=== PATIENT | female | born 1970 | race Caucasian/White ===

== ENCOUNTER → 2020-08-23 08:14 | Outpatient (BNVA) | payer MEDICAID, SELFPAY | PROVIDERS: PCP Nurse Practitioner Pediatrics; Visit Provider Physician Assistant | DX: Z76.89 Persons encountering health services in other specified circumstances (principal) ==

== ENCOUNTER → 2020-09-13 09:58 | Outpatient (BNVA) | payer MEDICAID, SELFPAY | PROVIDERS: PCP Nurse Practitioner Pediatrics; Visit Provider Surgery | DX: E66.9 Obesity, unspecified (principal); Z68.32 Body mass index [BMI] 32.0-32.9, adult; K21.9 Gastro-esophageal reflux disease without esophagitis; Z98.84 Bariatric surgery status | CPT/HCPCS: 99212 ==

== ENCOUNTER 2020-10-05 06:32 | Day surgery (SDC) | payer MEDICAID, SELFPAY ==
[2020-09-29 14:05] VITALS: BMI 32.3
--- NOTE | 2020-10-04 10:52 | HO.ANESPROP2 ---
Documented by User: Yisel Valdez 10/04/20 10:53 HPI - Anesthesia Eval Consult details Narrative: 50yo F for Upper Endoscopy s/p gastric sleeve 09/2018 [facility] Past Medical History Medical History Asthma GERD (gastroesophageal reflux disease) History of tinnitus Obesity (BMI 30-39.9) Osteoarthritis Seizures Family History Family History Father CVD (cardiovascular disease) Obesity Mother Lung cancer Cervical cancer Brother No problems noted. Son No problems noted. Daughter No problems noted. Daughter No problems noted. Surgical History Surgical History History of bilateral knee arthroplasty History of endometrial ablation History of sleeve gastrectomy Hx of carpal tunnel repair Hx of section S/P DAWSON (total abdominal hysterectomy) Social History Social History Are you a primary child care associate teacher to a significant other at home: No Do you presently have visiting nurse or other home services: No Alcohol intake: never Smoking Status: Former smoker Smoking Quit Date: 2017 Use of substances other than those prescribed or required for medical reasons: No Have you been hit, kicked, punched, or otherwise hurt by someone within the past year? If so, by whom?: No Advance Directives: No Advance Directives Information Provided: No Advance Directives on File: No Recently lost weight without trying: No Meds Allergies Allergy/AdvReac Type Severity Reaction Status Date / Time clarithromycin [From BIAXIN] Allergy Severe RASH Verified 10/05/20 06:51 shrimp [SHRIMP] Allergy Severe THROAT Verified 10/05/20 06:51 CLOSES carbamazepine [From TEGRETOL] Allergy Intermediate RASH Verified 10/05/20 06:51 Home Medications Medication Instructions Recorded Confirmed Type Celebrate calcium citrate PO 08/23/20 09/13/20 History Opurity Bariatric MVI 1 tab PO DAILY 08/23/20 09/29/20 History pantoprazole 40 mg tablet,delayed 40 mg PO BID tab 09/13/20 09/29/20 History release Exam Exam Date and Time: October 04, 2020 1052 Height,Weight and Vital Signs: Height 5 ft 6 in Weight 90.804 kg Assessment and Plan Assessment Anesthesia Assessment: Chart Reviewed Documented by User: Sacha Lloyd 10/05/20 07:21 PMFSH Past Medical History Medical History Asthma GERD (gastroesophageal reflux disease) History of tinnitus Obesity (BMI 30-39.9) Osteoarthritis Seizures Family History Family History Father CVD (cardiovascular disease) Obesity Mother Lung cancer Cervical cancer Brother No problems noted. Son No problems noted. Daughter No problems noted. Daughter No problems noted. Family history of problems with anesthesia: No Surgical History Surgical History History of bilateral knee arthroplasty History of endometrial ablation History of sleeve gastrectomy Hx of carpal tunnel repair Hx of section S/P DAWSON (total abdominal hysterectomy) History of Problems with Anesthesia: Yes (Nausea) Social History Social History Are you a primary child care associate teacher to a significant other at home: No Do you presently have visiting nurse or other home services: No Alcohol intake: never Smoking Status: Former smoker Smoking Quit Date: 2017 Use of substances other than those prescribed or required for medical reasons: No Have you been hit, kicked, punched, or otherwise hurt by someone within the past year? If so, by whom?: No Advance Directives: No Advance Directives Information Provided: No Advance Directives on File: No Recently lost weight without trying: No Meds Allergies Allergy/AdvReac Type Severity Reaction Status Date / Time clarithromycin [From BIAXIN] Allergy Severe RASH Verified 10/05/20 06:51 shrimp [SHRIMP] Allergy Severe THROAT Verified 10/05/20 06:51 CLOSES carbamazepine [From TEGRETOL] Allergy Intermediate RASH Verified 10/05/20 06:51 Home Medications Medication Instructions Recorded Confirmed Type Celebrate calcium citrate PO 08/23/20 09/13/20 History Opurity Bariatric MVI 1 tab PO DAILY 12/08/20 01/14/21 History pantoprazole 40 mg tablet,delayed 40 mg PO BID tab 09/13/20 09/29/20 History release Exam Airway Mallampati Class: I TM Dist: >3cm Neck ROM: Full Loose/Missing/Broken Teeth: No Assessment and Plan Assessment Anesthesia Assessment: Anesthesia Plan Discussed and Chart Reviewed Final Anesthetic Review NPO: Yes ASA Class: II Final Preanesthetic Review: No Changes in Pt Med Stat, Meds/Allgs Chart Reviewed, Consent Obtained/Reviewed and Anes Risks/Benef Reviewed Patient Risk: Low Procedure Risk: Intermediate Anesthetic Plan Anesthetic Plan: MAC: and Agree w/ Assess. and Plan Disposition: Standard PACU
--- NOTE | 2020-10-04 14:13 | MHC.SHP ---
Pre-Procedural Eval Section B Chief Complaint: reflux disease Allergies: Allergies Allergy/AdvReac Type Severity Reaction Status Date / Time clarithromycin [From BIAXIN] Allergy Severe RASH Unverified 09/29/20 14:04 shrimp [SHRIMP] Allergy Severe THROAT Unverified 09/29/20 14:04 CLOSES carbamazepine [From TEGRETOL] Allergy Intermediate RASH Unverified 09/29/20 14:04 Plan I have reviewed the history and physical and performed a pertinent physical examination on my patient. No changes have occurred unless specified.
[2020-10-05 06:41] VITALS: BP 111/73; PULSE 71; RESP 16; TEMP 36.3; O2SAT 99
[2020-10-05] MEDS: Lactated Ringers 1,000 ML 100 ML IVCONT (06:52)
[2020-10-05 08:05] VITALS: BP 101/62; PULSE 85; RESP 15; TEMP 36.2; O2SAT 90
[2020-10-05 08:21] VITALS: BP 108/66; PULSE 76; RESP 14; TEMP 36.2; O2SAT 98
--- NOTE | 2020-10-05 08:33 | P.BOP_ITS ---
Brief Operative Note Date of Service: 10/05/20 Pre-op diagnosis: Severe gastroesophageal reflux disease status post sleeve gastrectomy 1 year ago Post-op diagnosis: other (Small sliding hiatal hernia, antral gastritis, J- shaped stomach) Procedure: 1. Esophagogastroduodenoscopy, 2. Antral biopsy x2, 3. Through the scope balloon dilation of proximal stenosis to 18-20 mm Implants: None Surgeon: Malia Moralez MD Anesthesia: MAC Estimated blood loss (mL): 1 Pathology: other (Antral biopsy x2) Condition: stable Disposition: PACU
--- NOTE | 2020-10-05 09:04 | OP_ITS ---
SURGEON: Malia Moralez MD PREOPERATIVE DIAGNOSIS: POSTOPERATIVE DIAGNOSIS: PROCEDURE PERFORMED: 1. Esophagogastroduodenoscopy. 2. Antral biopsy x2. 3. Balloon dilation of the mid gastric body with an 18 to 20 mm through the scope balloon. ESTIMATED BLOOD LOSS: COMPLICATIONS: None. ANESTHESIA: Total intravenous anesthesia with propofol given by the anesthesiologist. ASSISTANTS: SPECIMENS: PREPROCEDURE DIAGNOSIS: Severe gastroesophageal reflux, status post gastric sleeve about a year and a half ago. POSTPROCEDURE DIAGNOSES: J-shaped stomach, small hiatal hernia which is sliding in nature and antral gastritis. CONDITION: Postprocedure, good. DESCRIPTION OF PROCEDURE: The patient was brought into the operating room on stretcher and placed in the left lateral decubitus position. A safety time-out was performed. A total intravenous anesthesia was given by the anesthesiologist. A bite block had been placed between the teeth prior to this. Once the patient was adequately sedated, the gastroscope was placed into posterior oropharynx, passed down the esophagus, evaluating esophageal mucosa which was normal. The GE junction was located at 34 cm from the incisors. There was a small sliding hiatal hernia. The gastroscope was passed into the proximal gastric pouch and then there was a ervin turn to the stomach creating a J-shaped. There appeared to be mild stenosis at this area, but the gastroscope was easily passed through this portion into the lower stomach. The stomach continued to turn in a J-like fashion and it was another ervin turn to get out to the antrum and then out to the duodenum. The gastroscope was easily passed through the pre-pyloric region into the duodenum all of which was normal. All these portions of the upper endoscopy were documented using photo documentation. There was slight erythema and granularity of the antrum, which was biopsied x2. I decided to perform a [id number] balloon dilation of the proximal ervin turn that may have been mildly stenosed. I have placed an 18 to 20 mm [id number] balloon across this area at 40 cm from the incisors where the 1st turn noting in the J-shaped stomach was. I placed this across the area of mild stenosis and we blew up the balloon to 18 mm, left it there for 1 minute. We then blew up the balloon to 19 mm and left there for 1 minute and then blew it up to 20 mm and left it there for additional 1 minute before letting the balloon down, and removing it from the scope. We evaluated this area again. It did not appear to be stenosed, but there was a turn in this area consistent with a J-shaped stomach proximally and just before the antrum. We desufflated the stomach and removed the scope without difficulty. The patient was sent to the recovery room in stable condition. PICKLE PUMPER: None. SPECIMEN: Antral biopsy x2. MD LOTTIE Perez/MODL / [id number]
== END 2020-10-05 08:55 | disposition home or self-care (01) ==
PROVIDERS: PCP Nurse Practitioner Pediatrics; Visit Provider Surgery
PROC: 0DJ08ZZ Inspection of Upper Intestinal Tract, Via Natural or Artificial Opening Endoscopic (ICD-10-PCS; CPT 43235; principal; 2020-10-05 07:30)
DX: K21.9 Gastro-esophageal reflux disease without esophagitis (principal); K29.50 Unspecified chronic gastritis without bleeding; K31.89 Other diseases of stomach and duodenum; K44.9 Diaphragmatic hernia without obstruction or gangrene; Z98.84 Bariatric surgery status; J45.909 Unspecified asthma, uncomplicated; M19.90 Unspecified osteoarthritis, unspecified site; R56.9 Unspecified convulsions; Z79.899 Other long term (current) drug therapy; Z88.1 Allergy status to other antibiotic agents; Z88.8 Allergy status to other drugs, medicaments and biological substances; Z87.891 Personal history of nicotine dependence
CPT/HCPCS: 43249; 43239; 88305; 88342; C1726; J3010

== ENCOUNTER → 2020-10-07 11:07 | Outpatient (BNVA) | payer MEDICAID, SELFPAY | PROVIDERS: PCP Nurse Practitioner Pediatrics; Visit Provider Surgery | DX: E66.9 Obesity, unspecified (principal); K21.9 Gastro-esophageal reflux disease without esophagitis; Z90.3 Acquired absence of stomach [part of]; Z68.32 Body mass index [BMI] 32.0-32.9, adult | CPT/HCPCS: 99212 ==

== ENCOUNTER → 2020-10-13 09:12 | Outpatient (BNVA) | payer MEDICAID, SELFPAY | PROVIDERS: PCP Nurse Practitioner Pediatrics; Visit Provider Surgery | DX: Z01.818 Encounter for other preprocedural examination (principal); E66.9 Obesity, unspecified; K21.9 Gastro-esophageal reflux disease without esophagitis; R06.02 Shortness of breath; Z90.3 Acquired absence of stomach [part of] | CPT/HCPCS: 99212 ==

== ENCOUNTER 2020-10-19 06:08 | Inpatient (IN) | payer MEDICAID, SELFPAY ==
--- NOTE | 2020-10-13 | ECG_ITS ---
Test Reason : SOB, PREOP Blood Pressure : / mmHG Vent. Rate : 056 BPM Atrial Rate : 056 BPM P-R Int : 162 ms QRS Dur : 094 ms QT Int : 418 ms P-R-T Axes : 039 023 020 degrees QTc Int : 403 ms Sinus bradycardia Otherwise normal ECG When compared with ECG of 02-OCT-2018 14:37, No significant change was found Referred By: Malia Moralez Electronically Signed By:Brian Price
[2020-10-13 10:39] LABS: MANUAL DIFF FLAG NO
[2020-10-13 10:44] LABS: Basophils Absolute Auto 0.1 X10*3/uL (0.0-0.2); Basophils Percent Auto 1.5 % (0-2); Eosinophils Absolute Auto 0.2 X10*3/uL (0.0-0.4); Eosinophils Percent Auto 3.9 % (0-4); Hematocrit 36.5 % (37-47); Hemoglobin 11.8 g/dl (12.0-16.0); Lymphocytes Absolute Auto 1.4 X10*3/uL (1.2-4.9); Lymphocytes Percent Auto 33.7 % (20-40); Mean Corpuscular HGB Conc 32.3 g/dl (31.0-35.0); Mean Corpuscular Hemoglobin 30.4 pg (27.0-33.0); Mean Corpuscular Volume 94.1 fL (80-98); Mean Platelet Volume 10.3 fL (9.4-12.3); Monocytes Absolute Auto 0.3 X10*3/uL (0.1-1.2); Monocytes Percent Auto 6.8 % (2-11); Neutrophils Absolute Auto 2.2 X10*3/uL (2.0-8.3); Neutrophils Percent Auto 54.1 % (45-73); Platelet Count 280 X10*3/uL (160-400); Red Blood Count 3.88 X10*6/uL (4.20-5.50); Red Cell Distribution Width 13.4 % (11.0-16.0); White Blood Count 4.1 X10*3/uL (4.8-10.8)
[2020-10-13 11:02] LABS: Glucose Urine UA NEG (NEG); Leukocyte Esterase Urine NEG (NEG); Nitrite Urine NEG (NEG); Urine Blood NEG (NEG); Urine Ketones NEG (NEG); Urine Protein NEG (NEG-TRACE)
[2020-10-13 11:04] LABS: Appearance Urine CLEAR; Color Urine YELLOW
[2020-10-13 11:09] LABS: Albumin Level 4.4 g/dL (3.5-5.0); Anion Gap 13 (12-20); Blood Urea Nitrogen 12 mg/dL (9-16); Calcium 9.3 mg/dL (8.4-10.2); Carbon Dioxide 28 mmol/L (22-29); Chloride 102 mmol/L (96-108); Estimated Glomerular Filt Rate > 60; Glucose Random 81 mg/dL (60-115); Potassium 4.5 mmol/l (3.3-5.1); Sodium 138 mmol/L (135-145)
[2020-10-14 11:47] VITALS: BMI 31.8
--- NOTE | 2020-10-18 12:03 | MHC.SHP ---
Pre-Procedural Eval Section B Chief Complaint: Obesity Allergies: Allergies Allergy/AdvReac Type Severity Reaction Status Date / Time clarithromycin [From BIAXIN] Allergy Severe RASH Verified 10/14/20 11:09 shrimp [SHRIMP] Allergy Severe THROAT Verified 10/14/20 11:09 CLOSES carbamazepine [From TEGRETOL] Allergy Intermediate RASH Verified 10/14/20 11:09 Plan I have reviewed the history and physical and performed a pertinent physical examination on my patient. No changes have occurred unless specified.
[2020-10-19] VITALS (15 sets, daily range): BP systolic 128–160; BP diastolic 64–85; PULSE 73–99; RESP 14–20; TEMP 36.4–37.3; O2SAT 95–100
[2020-10-19 06:56] LABS: COVID-19 Test Negative (Negative)
--- NOTE | 2020-10-19 07:10 | HO.ANESPROP2 ---
[facility] Past Medical History Medical History Asthma GERD (gastroesophageal reflux disease) History of tinnitus Obesity (BMI 30-39.9) Osteoarthritis Seizures Family History Family History Father CVD (cardiovascular disease) Obesity Mother Lung cancer Cervical cancer Brother No problems noted. Son No problems noted. Daughter No problems noted. Daughter No problems noted. Surgical History Surgical History History of bilateral knee arthroplasty History of endometrial ablation History of esophagogastroduodenoscopy (EGD) History of sleeve gastrectomy Hx of carpal tunnel repair Hx of section S/P DAWSON (total abdominal hysterectomy) Social History Social History Are you a primary pediatric critical care nurse to a significant other at home: No Do you presently have visiting nurse or other home services: No Alcohol intake: never Smoking Status: Former smoker Smoking Quit Date: 2017 Use of substances other than those prescribed or required for medical reasons: No Have you been hit, kicked, punched, or otherwise hurt by someone within the past year? If so, by whom?: No Advance Directives: No Advance Directives Information Provided: No Advance Directives on File: No Recently lost weight without trying: No Meds Allergies Allergy/AdvReac Type Severity Reaction Status Date / Time clarithromycin [From BIAXIN] Allergy Severe RASH Verified 10/14/20 11:09 shrimp [SHRIMP] Allergy Severe THROAT Verified 10/14/20 11:09 CLOSES carbamazepine [From TEGRETOL] Allergy Intermediate RASH Verified 10/14/20 11:09 Home Medications Medication Instructions Recorded Confirmed Type Celebrate calcium citrate PO 08/23/20 10/13/20 History Opurity Bariatric MVI 1 tab PO DAILY 08/23/20 10/14/20 History pantoprazole 40 mg tablet,delayed 40 mg PO BID tab 09/13/20 10/14/20 History release omeprazole 40 mg PO DAILY 10/19/20 10/19/20 History Exam Exam Date and Time: October 19, 2020 0710 Height,Weight and Vital Signs: Height 5 ft 6 in Weight 89.494 kg Last Vital Signs Temp 97.6 F 10/19/20 06:21 Pulse 73 10/19/20 06:21 Resp 20 10/19/20 06:21 BP 130/72 10/19/20 06:21 Pulse Ox 98 10/19/20 06:21 Pertinent Lab Results Pertinent Lab Results: Laboratory Tests 10/13/20 10/13/20 10/13/20 10:25 10:25 10:30 WBC 4.1 L RBC 3.88 L Hgb 11.8 L Hct 36.5 L MCV 94.1 MCH 30.4 MCHC 32.3 RDW 13.4 Plt Count 280 MPV 10.3 Immature Gran % (Auto) 0.0 Neut % (Auto) 54.1 Lymph % (Auto) 33.7 [place] % (Auto) 6.8 Eos % (Auto) 3.9 Baso % (Auto) 1.5 Lymph # (Auto) 1.4 [place] # (Auto) 0.3 Eos # (Auto) 0.2 Baso # (Auto) 0.1 Abs Immat Gran (auto) 0.00 Absolute Neuts (auto) 2.2 Absolute Nucleated RBC 0.000 Nucleated RBC % (auto) 0.0 Sodium 138 Potassium 4.5 Chloride 102 Carbon Dioxide 28 Anion Gap 13 BUN 12 Creatinine 0.76 Estim Creat Clear Calc TNP Estimated GFR > 60 Random Glucose 81 Calcium 9.3 Albumin 4.4 Urine Color Urine Appearance Urine pH Ur Specific Spencer Urine Protein Urine Glucose (UA) Urine Ketones Urine Blood Urine Nitrite Ur Leukocyte Esterase COVID-19 ([facility]) COVID-19 Clin Com Blood Type O Positive Antibody Screen NEGATIVE 10/13/20 10/19/20 Unknown 06:10 WBC RBC Hgb Hct MCV MCH MCHC RDW Plt Count MPV Immature Gran % (Auto) Neut % (Auto) Lymph % (Auto) [place] % (Auto) Eos % (Auto) Baso % (Auto) Lymph # (Auto) [place] # (Auto) Eos # (Auto) Baso # (Auto) Abs Immat Gran (auto) Absolute Neuts (auto) Absolute Nucleated RBC Nucleated RBC % (auto) Sodium Potassium Chloride Carbon Dioxide Anion Gap BUN Creatinine Estim Creat Clear Calc Estimated GFR Random Glucose Calcium Albumin Urine Color YELLOW Urine Appearance CLEAR Urine pH 7.0 Ur Specific Spencer 1.010 Urine Protein NEG Urine Glucose (UA) NEG Urine Ketones NEG Urine Blood NEG Urine Nitrite NEG Ur Leukocyte Esterase NEG COVID-19 ([facility]) Negative COVID-19 Clin Com See Note Blood Type Antibody Screen Airway Mallampati Class: II TM Dist: >3cm Neck ROM: Full Loose/Missing/Broken Teeth: No Heart: [id number] Lungs: cta b/l Assessment and Plan Assessment Anesthesia Assessment: Anesthesia Plan Discussed and Chart Reviewed Final Anesthetic Review NPO: Yes ASA Class: II Final Preanesthetic Review: No Changes in Pt Med Stat, Meds/Allgs Chart Reviewed, Consent Obtained/Reviewed and Anes Risks/Benef Reviewed Patient Risk: Low Procedure Risk: Low Assessment/Block/Sedation in SS: Assess/Block/Sedation-SS Anesthetic Plan Anesthetic Plan: GA and Agree w/ Assess. and Plan Disposition: Standard PACU
[2020-10-19] MEDS: Lactated Ringers 1,000 ML 50 ML IVCONT (07:15)
--- NOTE | 2020-10-19 11:04 | P.OP_ITS ---
Operative Note Operative Note Date of Service: 10/19/20 Narrative: Patient was brought into the operating room and placed on the operating room table in the supine position. General anesthesia was induced. Normal DVT prophylaxis was instituted and the patient received 2 grams of cefotetan preoperatively. The abdomen was then prepped and draped in the normal sterile fashion. A safety time-out was performed. A mixture of 1% lidocaine with epinephrine and ?% Marcaine plain was used to an esthetize the planned incision site in the left upper quadrant. A #11 scalpel was used to make a 5 mm left upper quadrant transverse incision through which a veress needle was placed. Three pops were heard going through the fascia. A saline drop test was used to confirm that the veress needle was intraabdominal. An optiview technique was then used to place a 5mm port in the left upper quadrant. A 5 mm 30 degree laproscope was then placed through this port and the abdominal cavity was surveyed and was normal. The patient was placed in reverse Trendelenburg positioning. A bishop liver retractor was then placed in the subxyphoid position and it was used to hold up the left lobe of the liver to the abdominal wall. This was secured to the bed using the liver retractor brito. A RONNIE block was then performed for pain control on the right side of the abdomen. A 5 mm port was placed in the right upper quadrant near the falciform ligament. A 12 mm port was then placed in the mid epigastrium. One additional 5 mm port was placed in the left upper quadrant just to the left of the placement of the first port. I then performed a RONNIE block on the left side of the abdomen. We lifted up the transverse colon mesentery and visualized the ligament of Trietz. I then counted 40 cm from the ligament of Trietz and created a small window in the small bowel mesentery. I then stapled across the antimesenteric surface of the small bowel at the at the 40 cm polly. The proximal limb is the biliopancreatic limb and the distal transected bowel will be the billy limb. I divided the mesentery at the 40 cm polly parallel to the blood vessels in the mesentery for a short distance to be able to bring up the billy limb to the gastric pouch later. I counted 150 cm from the distally transected bowel and sutured the the billy limb at 150 cm to the biliopancreatic limb using the endostich and a 2-0 ethibond. I then created 2 enterotomies in the lined up limbs of bowel using the hook cautery. I lengthened the enterotomies using the ligasure device and created a common anastomosis using a 60 mm baker load endostapler. I stapled the common enterotomy transversely to prevent stricture. I then closed the mesenteric defect at the anastomosis with a 2-0 ethibond running endostich suture. I then created the gastric pouch. I removed the epigastric fat pad and opened up the angle of His. There was a small anterior hiatal hernia. I reapproximated the right and left crura using a total of 220 Ethibond sutures and a laparoscopic needle fast food delivery driver and knot pusher. There is no residual hiatal hernia. I gained entry into the lesser sac on the lesser curvature of the stomach by dividing a portion of the pars lucida. I fired a 60 mm purple endostapler transversely across the stomach about 4 cm distal to the GE junction. Completing the creation of the gastric pouch from the previous sleeve gastrectomy. The staple line was hemostatic. I brought the billy limb up to the gastric pouch and sutured the billy limb serosa to the gastric pouch serosa posterior to the transverse staple line using a 2-0 ethibond running stitch using the endostitch. I created a gastrotomy and enterotomy in the adjacent billy limb. I lengthened the gastrotomy and enterotomy using the ligasure. I sutured the posterior wall of the stomach and the billy limb together using a 0 vicryl running stitch. I sutured the anterior wall of the stomach and billy limb together using another running 0-vicryl stitch. The the anterior serosa of stomach and billy limb were sutured using a 2-0 ethibond running stitch for a double layer anterior and posterior closure of the gastrojejunostomy. I then clamped across the billy limb distal to the anastomosis using a fired 60 mm stapler. I flatted the patient and instilled normal saline around the new anastomosis. I per formed an on-talbe endoscopy. The gastric pouch mucosa was pink without any active bleeding the anastomosis was visably patent. I insufflated the gastric pouch and anastomosis. There was no evidence of leak on laparoscopy. I desufflated the gastric pouch and removed the endoscopy. I removed the endostapler from the abdomen and suctioned the fluid from the left upper quadrant. We placed a 10 mm Ollie-De La Rosa drain adjacent to the newly created anastomosis at the gastric jejunum. We brought the tubing out of the right upper quadrant 5 mm port site and secured the tubing to the abdominal wall using a 2-0 nylon suture. We placed this drain to bulb suction. We removed the 12 mm port and closed the defect with a 0 maxon suture and laparoscopic suture passer. We instilled local anesthetic into the fascial closure site and tied the suture down at a pressure of 8-10 mm of Hg. I removed the bishop liver retractor and the left upper quadrant ports. There was no evidence active bleeding. I removed the last port and laparoscopy. We reapproximated all skin incisions using 4-0 monocryl subcuticular stitch. We cleaned and dried the skin and applied dermabond to all skin incisions. All counts were correct at the end of the case . There were no complications. The patient was awake and in stable condition prior to extubation and transfer to the recovery room.
--- NOTE | 2020-10-19 11:08 | P.BOP_ITS ---
Brief Operative Note Date of Service: 10/19/20 Pre-op diagnosis: Severe gastroesophageal reflux disease and hiatal hernia Post-op diagnosis: same Procedure: Laparoscopic conversion of sleeve gastrectomy to Neisha-en-Y gastric bypass, hiatal hernia repair, and intraoperative endoscopy. Implants: covidien brendan Surgeon: Malia Moralez MD Anesthesia: GETA Child Psychologist: Moriah Barroso Estimated blood loss (mL): 30 Pathology: none sent Condition: stable Disposition: PACU
[2020-10-19] MEDS: HYDROmorphone HCl 0.5 MG/0.5 ML SYRINGE IVPUSH (11:10)
[2020-10-19] MEDS: Lactated Ringers 1,000 ML 150 ML IVCONT ×2 (13:32→20:54)
[2020-10-19] MEDS: ondansetron HCL 4 MG/2 ML VIAL IVPUSH ×2 (13:32→20:54)
[2020-10-19] MEDS: Famotidine/PF 20 MG/2 ML VIAL IVPUSH ×2 (13:32→20:54)
[2020-10-19] MEDS: cefoTEtan disodium 2 GM in 0.9 % Sodium Chloride 50 ML IV (18:56)
[2020-10-19] MEDS: HYDROmorphone HCl 0.5 MG/0.5 ML SYRINGE 0.25 MG IVPUSH (20:55)
[2020-10-19] MEDS: 0.9 % Sodium Chloride Flush 3 ML SYRINGE IVFLUSH (20:56)
[2020-10-20 01:40] VITALS: RESP 18
[2020-10-20] MEDS: HYDROmorphone HCl 0.5 MG/0.5 ML SYRINGE 0.25 MG IVPUSH ×2 (01:40→07:36)
[2020-10-20] MEDS: Lactated Ringers 1,000 ML 150 ML IVCONT (02:55)
[2020-10-20 03:51] VITALS: BP 140/73; PULSE 84; RESP 16; TEMP 36.9; O2SAT 99
[2020-10-20 04:29] LABS: Basophils Percent Auto 0.3 % (0-2); Eosinophils Percent Auto 0.1 % (0-4); Hematocrit 32.4 % (37-47); Hemoglobin 10.6 g/dl (12.0-16.0); Imm Gran Abs Auto 0.02 X10*3/uL (0.00-0.03); Imm Gran Pct Auto 0.3 % (0.0-0.4); Lymphocytes Percent Auto 13.6 % (20-40); MANUAL DIFF FLAG NO; Mean Corpuscular HGB Conc 32.7 g/dl (31.0-35.0); Mean Corpuscular Hemoglobin 30.8 pg (27.0-33.0); Mean Corpuscular Volume 94.2 fL (80-98); Mean Platelet Volume 10.2 fL (9.4-12.3); Monocytes Absolute Auto 0.5 X10*3/uL (0.1-1.2); Monocytes Percent Auto 7.3 % (2-11); Neutrophils Absolute Auto 5.6 X10*3/uL (2.0-8.3); Neutrophils Percent Auto 78.4 % (45-73); Platelet Count 217 X10*3/uL (160-400); Red Blood Count 3.44 X10*6/uL (4.20-5.50); Red Cell Distribution Width 13.9 % (11.0-16.0); White Blood Count 7.1 X10*3/uL (4.8-10.8)
[2020-10-20 04:53] LABS: Anion Gap 13 (12-20); Blood Urea Nitrogen 6 mg/dL (9-16); Calcium 8.2 mg/dL (8.4-10.2); Carbon Dioxide 25 mmol/L (22-29); Chloride 103 mmol/L (96-108); Creatinine Clr Calc Pharmacy 123.7; Estimated Glomerular Filt Rate > 60; Glucose Random 89 mg/dL (60-115); Sodium 137 mmol/L (135-145)
[2020-10-20] MEDS: ondansetron HCL 4 MG/2 ML VIAL IVPUSH (05:25)
--- NOTE | 2020-10-20 07:25 | PM.PNGS ---
Subjective Subjective Date of Service: 10/20/20 Patient reports: feels better, voiding w/o difficulty, flatus and no bowel movement Interval history: POD #1 s/p conversion of LSG to RNYGBP and HH repair. Pt reports some nausea that resolves with antiemetics, no emesis. Minimal abd apin, ambulating and voiding without difficulty. Using ICS hourly wit minimal non productive cough. Feels ready to start bariatric diet. No SOB or CP. Physical Exam Vital Signs: Vital Signs: Last Vital Signs Temp 98.4 F 10/20/20 03:51 Pulse 84 10/20/20 03:51 Resp 16 10/20/20 03:51 BP 140/73 H 10/20/20 03:51 Pulse Ox 99 10/20/20 03:51 Body Mass Index 31.8 Const: General: cooperative, healthy appearing, comfortable, no acute distress, well developed and awake GI: Inspection: No distended, Yes incision (all incisions clean and dry , surg glue intact), Yes obesity and Yes other (JAMIE drain with 15 cc serosang fluid, dressing with old bld) Palpation (GI): Soft to palpation, nontender, no guarding, not rigid and no masses Extrem: General: Yes normal to inspection, No no pedal edema and No no calf tenderness Progress Note: A&P Assessment and plan (1) S/P gastric bypass: Status: Acute (2) History of sleeve gastrectomy: Problem details: DOS 10/08/18, Dr. Moralez Status: Acute (3) Hiatal hernia: Status: Acute (4) Intestinal malabsorption following gastrectomy: Status: Acute Assessment and Plan: POD #1 s/p conversion of LSG to RNYGBP - stable VS, doing very well, am labs reviewed. Hgb low at 10.6, BUN 6. Will decrease IVF to 100cc/hr. Pt to continue wiht ICS hourly x 10, ambulate q 2h. Start Bariatric phase 2 diet now Plan to d/c JAMIE drain before discharge later today. Fall Risk Details Current Medications: Current Medications Generic Name Dose Route Start Last Admin Trade Name Freq PRN Reason Stop Dose Admin Famotidine 20 mg 10/19/20 12:46 10/19/20 20:54 Famotidine/Pf 20 Mg/2 Ml Vial IVPUSH 20 mg BID SHAMIKA Administration Hydromorphone HCl 0.25 mg 10/19/20 12:46 10/20/20 01:40 Hydromorphone Hcl 0.5 Mg/0.5 Ml Syringe IVPUSH 0.25 mg Q4H PRN Administration Pain, Severe (Pain Scale 7-10) Acetaminophen 1,000 mg in 100 mls @ 16.7 mls/hr 10/19/20 16:00 10/20/20 02:55 Ofirmev IV 16.7 mls/hr .Q6H SHAMIKA Administration Lactated Ringer's 1,000 mls @ 100 mls/hr 10/19/20 12:46 10/20/20 02:55 Lr IVCONT 150 mls/hr .Q10H SHAMIKA Administration Metoclopramide HCl 10 mg 10/19/20 12:46 Metoclopramide Hcl 10 Mg/2 Ml Vial IVPUSH Q6H PRN Nausea Ondansetron HCl 4 mg 10/19/20 12:46 10/20/20 05:25 Ondansetron Hcl 4 Mg/2 Ml Vial IVPUSH 4 mg Q8H SHAMIKA Administration Sodium Chloride 3 ml 10/19/20 16:00 10/19/20 20:56 0.9 % Sodium Chloride Flush 3 Ml Syringe IVFLUSH 3 ml QSHIFT SHAMIKA Administration Time Spent With Patient Time: Total time spent is greater than 50% in coordination of care (as documented) at patient's floor/unit and/or counseling patient: Time with patient: 15 - 24 minutes
[2020-10-20] MEDS: Famotidine/PF 20 MG/2 ML VIAL IVPUSH (07:36)
[2020-10-20] MEDS: 0.9 % Sodium Chloride Flush 3 ML SYRINGE IVFLUSH (07:39)
[2020-10-20 08:00] VITALS: BP 156/80; PULSE 83; RESP 16; TEMP 37.1; O2SAT 99
--- NOTE | 2020-10-20 08:56 | HO.POSTANES ---
Post Anesthesia Evaluation Post Anesthesia Evaluation Vital Signs: Vital Signs Temp Pulse Resp BP Pulse Ox 10/20/20 03:51 98.4 F 84 16 140/73 H 99 10/20/20 01:40 18 10/19/20 23:22 98.6 F 88 18 141/72 H 99 10/19/20 22:15 16 Anesthesia: General Endotracheal-GETA Mental Status: Awake Pain Control: Satisfactory Nausea/Vomiting: Mild (Resolving) Hydration: Adequate Anesthesia-Related Issues: No Anes. Related Issues
--- NOTE | 2020-10-20 09:48 | MHC.CM.PN ---
PATIENT IS FULLY INDEPENDENT WITH HER ADLS. NO DME OR VNA SERVICES. SHE IS DC TODAY WITH NO SERVICES. FRIEND WILL PROVIDE TRANSPORT. RN AWARE OF PLAN.
[2020-10-20] MEDS: Metoclopramide HCl 10 MG/2 ML VIAL IVPUSH (11:08)
[2020-10-20 12:00] VITALS: BP 151/77; PULSE 83; RESP 16; TEMP 36.9; O2SAT 98
--- NOTE | 2020-10-21 10:04 | PM.DS ---
DS: Providers Provider Date of Service: 10/19/20 Date of admission: 10/19/20 06:08 Primary care physician: Jessie Aguilar NP DS: Diagnosis Discharge Diagnosis (1) S/P gastric bypass: Status: Acute (2) History of sleeve gastrectomy: Problem details: DOS 10/08/18, Dr. Moralez (3) Hiatal hernia: Status: Resolved (4) Intestinal malabsorption following gastrectomy: Status: Acute DS: Medications Discharge Medications Home Medications: Home Medications Medication Instructions Recorded Confirmed Celebrate calcium citrate PO 08/23/20 10/13/20 Opurity Bariatric MVI 1 tab PO DAILY 08/23/20 10/14/20 pantoprazole 40 mg tablet,delayed 40 mg PO BID tab 09/13/20 10/14/20 release omeprazole 40 mg PO DAILY 10/19/20 10/19/20 Previous Rx's Medication Instructions Recorded acetaminophen 500 mg tablet 1,000 mg PO Q6H PRN #30 tab 10/13/20 docusate sodium 100 mg capsule 100 mg PO BID #30 cap 10/13/20 ondansetron HCl 4 mg tablet 4 mg PO Q6H PRN #30 tab 10/13/20 simethicone 80 mg chewable tablet 80 mg PO TID-QID PRN #30 tab 10/13/20 DS: Summary Time Spent with Patient Time attestation: Total time spent providing and/or coordinating discharge services: Discharge coordination time: Greater than 30 minutes Physical Exam Vital Signs: Vital Signs: Last Vital Signs Temp 98.5 F 10/20/20 12:00 Pulse 83 10/20/20 12:00 Resp 16 10/20/20 12:00 BP 151/77 H 10/20/20 12:00 Pulse Ox 98 10/20/20 12:00 Body Mass Index 31.8 DS: Data Data Completed and Pending Completed studies during hospitalization [Text1]: Procedures Bypass Stomach to Jejunum, Percutaneous Endoscopic Approach (10/19/20) Repair Diaphragm, Percutaneous Endoscopic Approach (10/19/20) Labs on day of discharge: Laboratory Tests 10/13/20 10/13/20 10/13/20 10:25 10:25 10:30 WBC 4.1 L RBC 3.88 L Hgb 11.8 L Hct 36.5 L MCV 94.1 MCH 30.4 MCHC 32.3 RDW 13.4 Plt Count 280 MPV 10.3 Immature Gran % (Auto) 0.0 Neut % (Auto) 54.1 Lymph % (Auto) 33.7 [place] % (Auto) 6.8 Eos % (Auto) 3.9 Baso % (Auto) 1.5 Lymph # (Auto) 1.4 [place]ern # (Auto) 0.3 Eos # (Auto) 0.2 Baso # (Auto) 0.1 Abs Immat Gran (auto) 0.00 Absolute Neuts (auto) 2.2 Absolute Nucleated RBC 0.000 Nucleated RBC % (auto) 0.0 Sodium 138 Potassium 4.5 Chloride 102 Carbon Dioxide 28 Anion Gap 13 BUN 12 Creatinine 0.76 Estim Creat Clear Calc TNP Estimated GFR > 60 Random Glucose 81 Calcium 9.3 Albumin 4.4 Urine Color Urine Appearance Urine pH Ur Specific [employer] Urine Protein Urine Glucose (UA) Urine Ketones Urine Blood Urine Nitrite Ur Leukocyte Esterase COVID-19 ([facility]) COVID-19 Clin Com Blood Type O Positive Antibody Screen NEGATIVE 10/13/20 10/19/20 10/20/20 Unknown 06:10 04:16 WBC 7.1 RBC 3.44 L Hgb 10.6 L Hct 32.4 L MCV 94.2 MCH 30.8 MCHC 32.7 RDW 13.9 Plt Count 217 MPV 10.2 Immature Gran % (Auto) 0.3 Neut % (Auto) 78.4 H Lymph % (Auto) 13.6 L [place] % (Auto) 7.3 Eos % (Auto) 0.1 Baso % (Auto) 0.3 Lymph # (Auto) 1.0 L [place] # (Auto) 0.5 Eos # (Auto) 0.0 Baso # (Auto) 0.0 Abs Immat Gran (auto) 0.02 Absolute Neuts (auto) 5.6 Absolute Nucleated RBC 0.000 Nucleated RBC % (auto) 0.0 Sodium Potassium Chloride Carbon Dioxide Anion Gap BUN Creatinine Estim Creat Clear Calc Estimated GFR Random Glucose Calcium Albumin Urine Color YELLOW Urine Appearance CLEAR Urine pH 7.0 Ur Specific [employer] 1.010 Urine Protein NEG Urine Glucose (UA) NEG Urine Ketones NEG Urine Blood NEG Urine Nitrite NEG Ur Leukocyte Esterase NEG COVID-19 ([facility]) Negative COVID-19 Clin Com See Note Blood Type Antibody Screen 10/20/20 04:16 WBC RBC Hgb Hct MCV MCH MCHC RDW Plt Count MPV Immature Gran % (Auto) Neut % (Auto) Lymph % (Auto) [place] % (Auto) Eos % (Auto) Baso % (Auto) Lymph # (Auto) [place] # (Auto) Eos # (Auto) Baso # (Auto) Abs Immat Gran (auto) Absolute Neuts (auto) Absolute Nucleated RBC Nucleated RBC % (auto) Sodium 137 Potassium 4.0 Chloride 103 Carbon Dioxide 25 Anion Gap 13 BUN 6 L Creatinine 0.62 Estim Creat Clear Calc 123.7 Estimated GFR > 60 Random Glucose 89 Calcium 8.2 L D Albumin Urine Color Urine Appearance Urine pH Ur Specific [employer] Urine Protein Urine Glucose (UA) Urine Ketones Urine Blood Urine Nitrite Ur Leukocyte Esterase COVID-19 ([facility]) COVID-19 Clin Com Blood Type Antibody Screen Discharge Plan Discharge Patient Disposition: Home, Self-Care Referrals: Jessie Aguilar, FILBERT GROWER [Primary Care Provider] - Discharge Medications: Continued omeprazole 40 mg Capsule,Delayed Release(Dr/Ec) 40 mg PO DAILY RF: 0 Opurity Bariatric MVI 1 tab PO DAILY RF: 0 Celebrate calcium citrate PO RF: 0 pantoprazole 40 mg tablet,delayed release (DR/EC) 40 mg PO BID RF: 0 acetaminophen [Tylenol Extra Strength] 500 mg tablet 1,000 mg PO Q6H PRN (Reason: pain) Qty: 30 RF: 1 simethicone [Gas Relief (simethicone)] 80 mg tablet,chewable 80 mg PO TID-QID PRN (Reason: abdominal distention) Qty: 30 RF: 1 ondansetron HCl [Zofran] 4 mg tablet 4 mg PO Q6H PRN (Reason: nausea and vomiting) Qty: 30 RF: 1 docusate sodium [Colace] 100 mg capsule 100 mg PO BID Qty: 30 RF: 1 Discharge Orders: Discharge Order (Routine); Ordered 10/20/20 Ordered By: Malia Moralez Diet: other Activity on Discharge: No heavy lifting Stand Alone Forms: Patient Portal Discharge page Activity Restrictions/Additional Instructions: Discharge Instructions 1. Please call your doctor or come back to the emergency room should any new symptoms arise. 2. You will receive a courtesy call from [facility] 24-48 hours after discharge. 3. Activity: abstain from alcohol, practice limited stair climbing, no bending, no driving, no exercise, no illicit substances, no lifting, no sex, no tub bath, no work. 4. Diet: continue stage 3 protein shakes until your [address] Moralez. 5. Dressing Change/Wound Care: Your incision is covered by surgical glue. If the area is tender, you may apply an ice pack for short intervals (no more than 20 minutes on, followed by at least 20 minutes off). Do not apply heat. Do not use creams, lotions, or topical antibiotics unless instructed to do so by your surgeon. These can cause infection or allergic reaction. 6. Call your doctor if: - Your temperature exceeds 101.5 F - You experience excessive pain or swelling - You have an unexpected reaction to medication - You have excessive bleeding - You experience continued vomiting/nausea - Your incision begins to separate - Your incision shows signs of infection such as increased redness, swelling, excessive pain, heat, or drainage (light blood or clear fluid is normal) 7. General instructions: - No lifting greater than 5 lbs for the next 4 weeks. - No driving within 24 hours of taking narcotic pain medications. - If you do not move your bowels in the next 2 days, please take milk of magnesia over the counter. Please follow the post op diet and do not advance your diet until you are seen in the office in about 2 weeks. - Please walk around your home every hour or two to prevent blood clots from forming in your legs. You do not need to wake from sleeping to walk. - Please sleep in a bed or couch to prevent kinking at the hips and knees. - Please take your incentive spirometer (your lung food and beverage associate) home with you and use it for the next few days to prevent pneumonias. - You may shower, no hot tubs, baths or swimming pools. - Please call the office with any questions or concerns such as increasing abdominal pain, fever, chills, shortness of breath, chest pain, leg pain or swelling, or redness or drainage from your incisions. - Please stay on stage 3 diet which includes sugar free clear liquids such as ice pops and jello and broth and crystal light. Avoid all carbonation. Please drink 3 protein shakes with at least 25-30 grams of protein daily or 3 of the Celebrate 4:1 shakes which can be purchased in our office. The Celebrate shakes have all of the bariatric vitamins you need if you consume these shakes. If you are drinking other protein shakes, you will need to purchase the Celebrate multivitamins and calcium that we provide in the office (they will provide all the vitamins you need). Please make sure you are consuming at least 40-60 ounces of water in addition to your 3 protein shakes daily. 8. Do not hesitate to contact the office with any questions at . Discharge Summary Date of Service: 10/20/20 Admitting Diagnosis: GERD, obesity Discharge Diagnosis: same, s/p conversion from LSG to LRYGB and HH repair Procedure Performed: conversion of LSG to LRYGB and HH repair Discharge Medications: 1. Simethicone 80mg tablet chewable (Si tablet every 6 hours orally for 7 days, #28, 1 RF) q4h prn gas 2. Acetaminophen 500 mg tablet (Si tablets as needed every 6 hours orally for 30 days, #240, 0 RF) 3. Ondansetron 4 mg tablet disintegrating (Si tablet every 6 hours orally for 7 days, #28, 1 RF) 4. Colace 100 mg capsule (Si capsule twice a day for 30 days, #60, 2 RF) 5. Pepcid 20 mg chewable tablet (Si tablet twice a day for 30 days, #60, 3 RF) Discharge Instructions: The patient should continue on the stage III bariatric diet, which includes 3 protein shakes of at least 20-30g of protein on a daily basis. The patient was encouraged to avoid drinking liquids with her protein shakes. They should wait 30-45 minutes in between her meals and drinking water. She should drink at least 40-60 ounces of water on a daily basis. They should ambulate while at home to avoid any blood clots in her lower extremities. They should call with any questions or concerns such as increase in abdominal pain, persistent nausea, vomiting, redness and drainage from her incisions, fever, chills, shortness of breast, or chest pain beyond what is normal for her. The patient should avoid all heavy lifting greater than 5 pounds for the next 4 weeks. The patient is already scheduled to follow up with me in 2 weeks time, but should call the office with any questions prior to that follow up appointment. The patient should not advance their diet until they are seen in the office for the 2 week appointment. Hospital Course: The patient was admitted after undergoing HH repair and conversion of LSG to LRYGB. They were kept NPO on POD #0. Then they were started on stage II (1 oz of fluid every 15 minutes) on POD #1. The next morning they were evaluated and started on stage III diet (protein shakes). All labs were within normal limits. On post-operative day #1 she was feeling better, nausea and epigastric pain improved and they were tolerating stage III bariatric diet well. The patient was discharged home. Discharge Disposition: Home. Visit Report Forms: Patient Portal Discharge page Care Plan Goals: improvement of GERD, weight loss Health Concerns: GERD, obesity Plan of Treatment: see discharge instructions Discharge Date/Time: 10/20/20 13:04
== END 2020-10-20 13:04 | disposition home or self-care (01) | DRG 220 ==
LOC: HO.SSSA 11:13 → HO.S3 11:20
PROVIDERS: Physician Assistant; Admitting Provider Surgery; PCP Nurse Practitioner Pediatrics; Visit Provider Surgery
PROC: 0BQT4ZZ Repair Diaphragm, Percutaneous Endoscopic Approach (ICD-10-PCS; CPT 43644; principal; 2020-10-19 07:30)
DX: K95.89 Other complications of other bariatric procedure (principal); K91.2 Postsurgical malabsorption, not elsewhere classified; K44.9 Diaphragmatic hernia without obstruction or gangrene; K21.9 Gastro-esophageal reflux disease without esophagitis; E66.9 Obesity, unspecified; Z68.31 Body mass index [BMI] 31.0-31.9, adult; Z20.822 Contact with and (suspected) exposure to COVID-19; Z98.84 Bariatric surgery status; Z79.899 Other long term (current) drug therapy
CPT/HCPCS: 43644; 36415; 80048; 81003; 82040; 85025; 86850; 86900; 86901; 87635; 93005; J0131; J1100; J1170; J2250; J2405; J2765; J3010

== ENCOUNTER → 2020-11-04 09:23 | Outpatient (BNVA) | payer MEDICAID, SELFPAY | PROVIDERS: PCP Nurse Practitioner Pediatrics; Visit Provider Surgery | DX: E66.9 Obesity, unspecified (principal); Z98.84 Bariatric surgery status; Z98.890 Other specified postprocedural states; Z87.19 Personal history of other diseases of the digestive system | CPT/HCPCS: 99212 ==

== ENCOUNTER → 2020-12-02 08:14 | Outpatient (BNVA) | payer MEDICAID, SELFPAY | PROVIDERS: PCP Nurse Practitioner Pediatrics; Visit Provider Physician Assistant | DX: E66.9 Obesity, unspecified (principal); Z98.84 Bariatric surgery status | CPT/HCPCS: 99212 ==

== ENCOUNTER → 2020-12-16 15:11 | Outpatient (BNVA) | payer MEDICAID, SELFPAY | PROVIDERS: PCP Nurse Practitioner Pediatrics; Visit Provider Physician Assistant | DX: E66.3 Overweight (principal); Z98.84 Bariatric surgery status; Z87.19 Personal history of other diseases of the digestive system; Z98.890 Other specified postprocedural states | CPT/HCPCS: 99212 ==

== ENCOUNTER → 2020-12-23 14:11 | Outpatient (BNVA) | payer MEDICAID, SELFPAY | PROVIDERS: PCP Nurse Practitioner Pediatrics; Visit Provider Dietitian, Registered | DX: E66.3 Overweight (principal) | CPT/HCPCS: 97803 ==

== ENCOUNTER → 2021-01-12 15:02 | Outpatient (BNVA) | payer MEDICAID, SELFPAY | PROVIDERS: PCP Nurse Practitioner Pediatrics; Visit Provider Surgery | DX: E66.3 Overweight (principal); Z68.27 Body mass index [BMI] 27.0-27.9, adult; Z98.84 Bariatric surgery status | CPT/HCPCS: 99212 ==

== ENCOUNTER → 2021-02-09 15:18 | Outpatient (BNVA) | payer MEDICAID, SELFPAY | PROVIDERS: PCP Nurse Practitioner Pediatrics; Visit Provider Physician Assistant | DX: E66.3 Overweight (principal); K91.2 Postsurgical malabsorption, not elsewhere classified; Z90.3 Acquired absence of stomach [part of]; Z98.84 Bariatric surgery status; Z98.890 Other specified postprocedural states; Z87.19 Personal history of other diseases of the digestive system; Z68.27 Body mass index [BMI] 27.0-27.9, adult | CPT/HCPCS: 99212 ==

== ENCOUNTER → 2021-04-06 15:13 | Outpatient (BNVA) | payer MEDICAID, SELFPAY | PROVIDERS: PCP Nurse Practitioner Pediatrics; Visit Provider Surgery | DX: E66.3 Overweight (principal); Z68.26 Body mass index [BMI] 26.0-26.9, adult; Z98.84 Bariatric surgery status; Z90.3 Acquired absence of stomach [part of] | CPT/HCPCS: 99212 ==